=== PATIENT | male | born 1955 | race Caucasian/White ===

== ENCOUNTER 2019-01-05 23:54 | Inpatient (IN) | payer BC ==
[2019-01-05] MEDS ORDERED: Aspirin 325 mg EC Tablets PO STA (23:58)
[2019-01-05] MEDS ORDERED: Heparin25000 units/250ml 1/2NS 25,000 UNITS/250 ML BAG IV PRN (23:58)
[2019-01-05] MEDS ORDERED: Heparin25000 units/250ml 1/2NS 25,000 UNITS/250 ML BAG IV STA (23:58)
--- NOTE | 2019-01-06 00:07 | C.PDOC ---
History Of Present Illness 63 year old male with Hx of HTN presents with chest pain that began 15 minutes [employer]. Patient brought in via ALS, EKG done enroute shows acute interior wall FL. Vitals are stable. Time Seen by Provider: 01/05/19 23:58 Chief Complaint (Nursing): Chest Pain History Per: Patient History/Exam Limitations: no limitations Onset/Duration Of Symptoms: Mins Current Symptoms Are (Timing): Still Present Associated Symptoms: denies: Nausea, Dyspnea, Diaphoresis, Syncope Modifying Factors: None Exacerbating Factors: None Alleviating Factors: None Recent travel outside of the [place]: No Past Medical History Reviewed: Historical Data, Nursing Documentation, Vital Signs Family History: States: No Known Family Hx - Social History Hx Tobacco Use: Yes Hx Alcohol Use: Yes Hx Substance Use: No - Immunization History Hx Tetanus Toxoid Vaccination: No Hx Influenza Vaccination: No Hx Pneumococcal Vaccination: No Review Of Systems Constitutional: Negative for: Fever, Chills Cardiovascular: Positive for: Chest Pain. Negative for: Palpitations Respiratory: Negative for: Cough, Shortness of Breath Gastrointestinal: Negative for: Nausea, Vomiting Neurological: Negative for: Weakness, Numbness Physical Exam - Physical Exam Appears: Non-toxic Skin: Normal Color, Warm, Dry Head: Atraumatic, Normacephalic Eye(s): bilateral: Normal Inspection Oral Mucosa: Moist Neck: Normal, Supple Chest: Symmetrical, No Tenderness Cardiovascular: Rhythm Regular Respiratory: Normal Breath Sounds, No Rales, No Rhonchi, No Wheezing Gastrointestinal/Abdominal: Soft, No Tenderness Neurological/Psych: Oriented x3, Normal Speech ED Course And Treatment - Laboratory Results Result Diagrams: 01/06/19 08:50 01/06/19 08:50 Progress Note: EKG, blood work, and CXR ordered. Aspirin, heparin, brilinta and morphine administered. Dr. Alfrao called and notified, will come see patient for cardiac cath. Disposition Discussed With : Panda Alfaro Doctor Will See Patient In The: Hospital Counseled Patient/Family Regarding: Diagnosis - Disposition Disposition: HOSPITALIZED Disposition Time: 23:55 Condition: GUARDED - POA Present On Arrival: None Core Measure Indicators: Code Heart - Clinical Impression Clinical Impression: Acute ST elevation myocardial infarction (STEMI) - Scribe Statement The provider has reviewed the documentation as recorded by the Scribe Toan Fernandes All medical record entries made by the Scribe were at my direction and personally dictated by me. I have reviewed the chart and agree that the record accurately reflects my personal performance of the history, physical exam, medical decision making, and the department course for this patient. I have also personally directed, reviewed, and agree with the discharge instructions and d isposition.
--- NOTE | 2019-01-06 00:08 | C.PDOC ---
Time Seen by Provider: 01/05/19 23:58 Chief Complaint (Nursing): Chest Pain Past Medical History - Social History Hx Tobacco Use: Yes Hx Alcohol Use: Yes Hx Substance Use: No - Immunization History Hx Tetanus Toxoid Vaccination: No Hx Influenza Vaccination: No Hx Pneumococcal Vaccination: No Disposition Discussed With DrJusta: Panda Alfaro Doctor Will See Patient In The: Hospital Counseled Patient/Family Regarding: Diagnosis - Disposition Disposition: HOSPITALIZED Disposition Time: 00:08 Condition: GUARDED - POA Present On Arrival: None - Clinical Impression Clinical Impression: Acute ST elevation myocardial infarction (STEMI)
[2019-01-06 00:19] LABS: BASO # 0.1 K/uL (0.0-0.2); BASO % 0.5 % (0.0-2.0); EOS # 0.1 K/uL (0.0-0.7); HEMOGLOBIN 15.5 g/dL (12.0-18.0); LYMPH # 4.5 K/uL (1.0-4.3); LYMPH % 39.7 % (20.0-40.0); MEAN CELL VOLUME 92.6 fL (80.0-94.0); MEAN CORPUSCULAR HGB CONC 33.5 g/dL (33.0-37.0); MEAN PLATELET VOLUME 8.4 fL (7.2-11.7); MONO # 1.1 K/uL (0.0-0.8); MONO % 9.6 % (0.0-10.0); NEUT # 5.6 K/uL (1.8-7.0); NEUT % 49.2 % (50.0-75.0); NRBC % 0.1 % (0.0-2.0); RBC 4.99 Mil/uL (4.40-5.90); RED CELL DISTRIBUTION WIDTH 13.5 % (11.5-14.5); WHITE BLOOD COUNT 11.4 K/uL (4.8-10.8)
[2019-01-06 00:27] LABS: INR 1.1; PROTHROMBIN TIME 11.9 SECONDS (9.7-12.2)
[2019-01-06] MEDS ORDERED: Lidocaine 2% MPF (5 ml) Inj ONE (00:33)
[2019-01-06 00:37] LABS: ALB/GLOB RATIO 1.4 (1.0-2.1); ALBUMIN 4.8 g/dL (3.5-5.0); ALT/SGPT 8 U/L (21-72); AST/SGOT 32 U/L (17-59); BLOOD UREA NITROGEN 16 mg/dL (9-20); CALCIUM 10.4 mg/dl (8.6-10.4); GFR NON-AFRICAN AMERICAN > 60
[2019-01-06] MEDS ORDERED: Eptifibatide 20 mg/10mL Inj IVP ONE ×2 (01:09→01:23)
[2019-01-06] MEDS ORDERED: Eptifibatide 0.75 mg/ml 75 MG/100 ML BAG IV ONE (01:14)
[2019-01-06] MEDS: Eptifibatide 0.75 mg/ml 75 MG/100 ML BAG IV SCH ×2 (01:15→09:22)
[2019-01-06] MEDS ORDERED: Midazolam 2 MG/2 ML VIAL ONE (01:24)
--- NOTE | 2019-01-06 01:37 | CP.PCM.CON ---
History of Present Illness - History of Present Illness History of Present Illness: 63 yo male with hx HTN /HLD developed chest apin while sleeping and BIBEMS. Pt was code heart for STEMI inf. wall and taken to cath lab radiological technologist where 100% RCA given NAEEM Pt denies chest pain when seen in cath lab radiological technologist post procedure No sob /n /v /d /fever/cough. ROS- as ntoed All- PCN Social-+tob/ +etoh/ deniend drugs Meds- reviewed FH- Unknown PE T- 97.8 P-82 R-16 BP-150/ 99 Alert responisnve nad Neck- no jvdlungs- bilat bs Heart-rr aBd- benign eXt- no edema, distal pulses intact Labs, EKG-reviewed A&P STEMI s/p Cardiac Cath /PCI /NAEEM to RCA HTN HLD Hypokalemia ADmit to ICU cont ASA/brilinta/ Integrilin as per Cardiology Statin /BB OPtimize lytes ECHO Staged PCI DVT prophylaxis Past Patient History - Past Social History Smoking Status: Light Smoker < 10 Cigarettes Daily - PSYCHIATRIC Hx Substance Use: No Meds Allergies/Adverse Reactions: Allergies Allergy/AdvReac Type Severity Reaction Status Date / Time Penicillins Allergy Verified 01/05/19 23:57 - Medications Medications: Current Medications Heparin Sodium/Sodium Chloride (Heparin 79531 Units/250ml 1/2 Normal Saline) 25,000 units in 250 mls @ 8.165 mls/hr IV .Q24H PRN; Protocol PRN Reason: ADJUST RATE PER PROTOCOL Last Admin: 01/06/19 00:19 Dose: 8.165 mls/hr Heparin Sodium/Sodium Chloride (Heparin 06892 Units/250ml 1/2 Normal Saline) 25,000 units in 250 mls @ 10.206 mls/hr IV .Q0M [facility]; Protocol Stop: 01/07/19 00:27 Last Admin: 01/06/19 00:30 Dose: Not Given Results - Vital Signs Recent Vital Signs: Last Vital Signs Temp 97.8 F 01/05/19 23:55 Pulse 82 01/06/19 00:30 Resp 16 01/06/19 00:30 BP 150/99 H 01/06/19 00:30 Pulse Ox 98 01/06/19 00:30 - Labs Result Diagrams: 01/06/19 00:12 01/06/19 00:12 Labs: Laboratory Results - last 24 hr 01/05/19 01/06/19 01/06/19 00:18 00:12 00:12 WBC 11.4 H RBC 4.99 Hgb 15.5 Hct 46.2 MCV 92.6 D MCH 31.0 MCHC 33.5 RDW 13.5 Plt Count 322 D MPV 8.4 Neut % (Auto) 49.2 L Lymph % (Auto) 39.7 [place] % (Auto) 9.6 Eos % (Auto) 1.0 Baso % (Auto) 0.5 Neut # (Auto) 5.6 Lymph # (Auto) 4.5 H [place] # (Auto) 1.1 H Eos # (Auto) 0.1 Baso # (Auto) 0.1 PT 11.9 INR 1.1 APTT 29 Sodium Potassium Chloride Carbon Dioxide Anion Gap BUN Creatinine Est GFR ( Amer) Est GFR (Non-Af Amer) Random Glucose Calcium Total Bilirubin AST ALT Alkaline Phosphatase Troponin I Total Protein Albumin Globulin Albumin/Globulin Ratio Blood Type B POSITIVE Antibody Screen Negative 01/06/19 00:12 WBC RBC Hgb Hct MCV MCH MCHC RDW Plt Count MPV Neut % (Auto) Lymph % (Auto) Burnet % (Auto) Eos % (Auto) Baso % (Auto) Neut # (Auto) Lymph # (Auto) Burnet # (Auto) Eos # (Auto) Baso # (Auto) PT INR APTT Sodium 139 Potassium 2.7 L Chloride 97 L Carbon Dioxide 32 H Anion Gap 12 BUN 16 Creatinine 0.7 L Est GFR ( Amer) > 60 Est GFR (Non-Af Amer) > 60 Random Glucose 129 H Calcium 10.4 Total Bilirubin 0.5 AST 32 ALT 8 L D Alkaline Phosphatase 98 Troponin I < 0.0120 Total Protein 8.1 Albumin 4.8 Globulin 3.4 Albumin/Globulin Ratio 1.4 Blood Type Antibody Screen Assessment & Plan (1) Acute ST elevation myocardial infarction (STEMI) Status: Acute (2) HTN (hypertension) Status: Chronic (3) HLD (hyperlipidemia) Status: Chronic (4) Hypokalemia Status: Acute
[2019-01-06] MEDS ORDERED: Magnesium Sulfate 1 gm in D5W 1 GM/100 ML BAG IVPB SCH (01:45)
[2019-01-06 02:12] VITALS: BMI 26.4
[2019-01-06] MEDS ORDERED: Magnesium Sulfate 1 gm in D5W 1 GM/100 ML BAG IVPB ONE (02:30)
[2019-01-06] MEDS: Sodium Chloride 0.45% 1,000 ML IV SCH ×2 (02:33→12:29)
--- NOTE | 2019-01-06 03:19 | CP.PCM.HP ---
<Rema Arana - Last Filed: 01/06/19 03:56> History of Present Illness - History of Present Illness History of Present Illness: Patient is a 63 year old male w/ pmhx of HTN who presented to ED as a "code heart". Pt reports he began having intense restrosternal chest pressure approximately 20 minutes prior to calling EMS. Pt attempted to alleviate the pain by taking his unknown antihypertensive medication(which he is not compliant w/) and by taking an antacid, w/ no relief of symptoms. Pt and family then called EMS to bring him to the hospital for further evaluation. EKG by EMS revealed a STEMI, a pt was given ASA, NG, brilinta, IVF prior to arrival. Pt subsequently underwent cardiac cath with PCI, NAEEM to RCA. Present on Admission - Present on Admission Any Indicators Present on Admission: No Review of Systems - Constitutional Constitutional: Headache - EENT Eyes: absent: Blurred Vision - Cardiovascular Cardiovascular: Chest Pain. absent: Dyspnea - Respiratory Respiratory: absent: Cough - Gastrointestinal Gastrointestinal: absent: Diarrhea, Nausea, Vomiting - Neurological Neurological: absent: Confusion, Syncope Past Patient History - Past Medical History & Family History Past Medical History?: Yes - Past Social History Smoking Status: Light Smoker < 10 Cigarettes Daily - CARDIAC Hx Hypertension: Yes - RENAL Hx Kidney Stones: Yes - MUSCULOSKELETAL/RHEUMATOLOGICAL Hx Falls: No - PSYCHIATRIC Hx Substance Use: No - ANESTHESIA Hx Anesthesia: No Hx Anesthesia Reactions: No Hx Malignant Hyperthermia: No Has any member of the family had a problem w/ anesthesia?: No Meds Allergies/Adverse Reactions: Allergies Allergy/AdvReac Type Severity Reaction Status Date / Time Penicillins Allergy Verified 01/05/19 23:57 Physical Exam - Constitutional Appears: Non-toxic, In Acute Distress - Head Exam Head Exam: ATRAUMATIC, NORMAL INSPECTION, NORMOCEPHALIC - Eye Exam Eye Exam: EOMI, Normal appearance - ENT Exam ENT Exam: Mucous Membranes Moist, Normal Exam - Neck Exam Neck exam: Positive for: Normal Inspection - Respiratory Exam Respiratory Exam: Clear to Auscultation Bilateral, NORMAL BREATHING PATTERN. absent: Respiratory Distress - Cardiovascular Exam Cardiovascular Exam: REGULAR RHYTHM, +S1, +S2. absent: Tachycardia - GI/Abdominal Exam GI & Abdominal Exam: Normal Bowel Sounds, Soft. absent: Distended - Extremities Exam Extremities exam: Positive for: normal inspection. Negative for: calf tenderness, pedal edema - Neurological Exam Neurological exam: Alert, Oriented x3 - Skin Skin Exam: Dry, Intact, Normal Color, Warm Results - Vital Signs Recent Vital Signs: Last Vital Signs Temp 97.8 F 01/05/19 23:55 Pulse 82 01/06/19 00:30 Resp 16 01/06/19 00:30 BP 150/99 H 01/06/19 00:30 Pulse Ox 98 01/06/19 00:30 - Labs Result Diagrams: 01/06/19 00:12 01/06/19 00:12 Labs: Laboratory Results - last 24 hr 01/05/19 01/06/19 01/06/19 00:18 00:12 00:12 WBC 11.4 H RBC 4.99 Hgb 15.5 Hct 46.2 MCV 92.6 D MCH 31.0 MCHC 33.5 RDW 13.5 Plt Count 322 D MPV 8.4 Neut % (Auto) 49.2 L Lymph % (Auto) 39.7 [place]yer % (Auto) 9.6 Eos % (Auto) 1.0 Baso % (Auto) 0.5 Neut # (Auto) 5.6 Lymph # (Auto) 4.5 H Dyer # (Auto) 1.1 H Eos # (Auto) 0.1 Baso # (Auto) 0.1 PT 11.9 INR 1.1 APTT 29 Sodium Potassium Chloride Carbon Dioxide Anion Gap BUN Creatinine Est GFR ( Amer) Est GFR (Non-Af Amer) Random Glucose Calcium Total Bilirubin AST ALT Alkaline Phosphatase Troponin I Total Protein Albumin Globulin Albumin/Globulin Ratio Blood Type B POSITIVE Antibody Screen Negative 01/06/19 00:12 WBC RBC Hgb Hct MCV MCH MCHC RDW Plt Count MPV Neut % (Auto) Lymph % (Auto) [place]yer % (Auto) Eos % (Auto) Baso % (Auto) Neut # (Auto) Lymph # (Auto) [place]yer # (Auto) Eos # (Auto) Baso # (Auto) PT INR APTT Sodium 139 Potassium 2.7 L Chloride 97 L Carbon Dioxide 32 H Anion Gap 12 BUN 16 Creatinine 0.7 L Est GFR ( Amer) > 60 Est GFR (Non-Af Amer) > 60 Random Glucose 129 H Calcium 10.4 Total Bilirubin 0.5 AST 32 ALT 8 L D Alkaline Phosphatase 98 Troponin I < 0.0120 Total Protein 8.1 Albumin 4.8 Globulin 3.4 Albumin/Globulin Ratio 1.4 Blood Type Antibody Screen Assessment & Plan - Assessment and Plan (Free Text) Assessment: 63 year old male w/ pmhx of uncontrolled HTN, admitted as code heart; s/p cardiac cath with PCI, NAEEM of RCA Plan: STEMI EKG: STEMI, inferior wall infarct s/p NAEEM of RCA ASA 81mg qd Integrilin Brilinta 90 po BID crestor 10mg hs metoprolol 25mg po q12 f/u lipid panel f/u Hgb a1c f/u echo Hypokalemia K 2.7 on admission replete as needed Ppx heparin 5000 q8, SCDs pepcid 20mg po BID HHD Discussed w/ Dr. Mtz -Rema Arana, PGY-1 <Kehinde Mtz - Last Filed: 01/06/19 06:48> Results - Vital Signs Recent Vital Signs: Last Vital Signs Temp 97.7 F 01/06/19 04:00 Pulse 72 01/06/19 04:50 Resp 18 01/06/19 04:50 BP 132/82 01/06/19 04:48 Pulse Ox 100 01/06/19 04:50 - Labs Result Diagrams: 01/06/19 00:12 01/06/19 00:12 Labs: Laboratory Results - last 24 hr 01/05/19 01/06/19 01/06/19 00:18 00:12 00:12 WBC 11.4 H RBC 4.99 Hgb 15.5 Hct 46.2 MCV 92.6 D MCH 31.0 MCHC 33.5 RDW 13.5 Plt Count 322 D MPV 8.4 Neut % (Auto) 49.2 L Lymph % (Auto) 39.7 [place]yer % (Auto) 9.6 Eos % (Auto) 1.0 Baso % (Auto) 0.5 Neut # (Auto) 5.6 Lymph # (Auto) 4.5 H Dyer # (Auto) 1.1 H Eos # (Auto) 0.1 Baso # (Auto) 0.1 PT 11.9 INR 1.1 APTT 29 Sodium Potassium Chloride Carbon Dioxide Anion Gap BUN Creatinine Est GFR ( Amer) Est GFR (Non-Af Amer) Random Glucose Calcium Total Bilirubin AST ALT Alkaline Phosphatase Troponin I Total Protein Albumin Globulin Albumin/Globulin Ratio Blood Type B POSITIVE Antibody Screen Negative 01/06/19 00:12 WBC RBC Hgb Hct MCV MCH MCHC RDW Plt Count MPV Neut % (Auto) Lymph % (Auto) Dyer % (Auto) Eos % (Auto) Baso % (Auto) Neut # (Auto) Lymph # (Auto) Dyer # (Auto) Eos # (Auto) Baso # (Auto) PT INR APTT Sodium 139 Potassium 2.7 L Chloride 97 L Carbon Dioxide 32 H Anion Gap 12 BUN 16 Creatinine 0.7 L Est GFR ( Amer) > 60 Est GFR (Non-Af Amer) > 60 Random Glucose 129 H Calcium 10.4 Total Bilirubin 0.5 AST 32 ALT 8 L D Alkaline Phosphatase 98 Troponin I < 0.0120 Total Protein 8.1 Albumin 4.8 Globulin 3.4 Albumin/Globulin Ratio 1.4 Blood Type Antibody Screen Assessment & Plan - Date & Time Date: 01/06/19 (I have seen and examined the patient. I agree with the findings and plan of care as documented by Dr. Arana. Patient with STEMI. History of hypertension and hyperlipidemia. S/p cath by Dr Alfaro. Admit to ICU. Further management as per ICU. Monitor for acute changes.) Time: 06:47 Attending/Attestation - Attestation I have personally seen and examined this patient.: Yes I have fully participated in the care of the patient.: Yes I have reviewed all pertinent clinical information: Yes
--- NOTE | 2019-01-06 07:31 | RAD ---
Chest x-ray single frontal view Chest pain. Comparison: None available. Findings: Mild venous congestion. Bilateral hilar prominence. Patchy increased markings in the right infrahilar region and left lung base. Cardiomegaly. Prominent ectatic aorta. Upper lobe granulomatous changes. Degenerative changes in the spine and shoulders. Increased radiopaque density and or contrast seen in the bilateral renal parenchyma. Impression: Mild venous congestion. Bilateral hilar prominence. Patchy increased markings in the right infrahilar region and left lung base. Cardiomegaly. Prominent ectatic aorta. Upper lobe granulomatous changes. Degenerative changes in the spine and shoulders. Increased radiopaque density and or contrast seen in the bilateral renal parenchyma.
[2019-01-06 09:03] LABS: BASO % 0.3 % (0.0-2.0); EOS % 0.3 % (0.0-4.0); HEMOGLOBIN 14.6 g/dL (12.0-18.0); LYMPH # 1.5 K/uL (1.0-4.3); LYMPH % 15.9 % (20.0-40.0); MEAN CELL VOLUME 91.7 fL (80.0-94.0); MEAN CORPUSCULAR HEMOGLOBIN 31.4 pg (27.0-31.0); MEAN CORPUSCULAR HGB CONC 34.2 g/dL (33.0-37.0); MEAN PLATELET VOLUME 8.4 fL (7.2-11.7); MONO # 0.9 K/uL (0.0-0.8); MONO % 9.7 % (0.0-10.0); NEUT # 6.8 K/uL (1.8-7.0); NEUT % 73.8 % (50.0-75.0); RBC 4.65 Mil/uL (4.40-5.90); RED CELL DISTRIBUTION WIDTH 13.7 % (11.5-14.5); WHITE BLOOD COUNT 9.2 K/uL (4.8-10.8)
[2019-01-06 09:29] LABS: LDL CHOLESTEROL 126 mg/dL (0-129)
[2019-01-06 10:00] LABS: ALB/GLOB RATIO 1.5 (1.0-2.1); ALBUMIN 3.9 g/dL (3.5-5.0); ALT/SGPT 57 U/L (21-72); AST/SGOT 379 U/L (17-59); BLOOD UREA NITROGEN 13 mg/dL (9-20); CALCIUM 8.7 mg/dl (8.6-10.4); GFR NON-AFRICAN AMERICAN > 60; HDL CHOLESTEROL 43 mg/dL (30-70)
[2019-01-06] MEDS ORDERED: Acetylcysteine 20% Inhal Soln (4ml) PO SCH (12:30)
--- NOTE | 2019-01-06 13:47 | CP.PCM.PN ---
Subjective - Date & Time of Evaluation Date of Evaluation: 01/06/19 Time of Evaluation: 13:44 - Subjective Subjective: Patient seen and examined at bedside. Patient post cardiac cath. SOHAM II, III, AVF, patient sitting in bed in NAD Objective - Vital Signs/Intake and Output Vital Signs (last 24 hours): Temp Pulse Resp BP Pulse Ox 98.3 F 70 20 160/105 H 98 01/06/19 12:00 01/06/19 13:10 01/06/19 12:30 01/06/19 12:56 01/06/19 13:10 Intake and Output: 01/06/19 01/06/19 06:59 18:59 Intake Total 917.2 778.4 Output Total 500 Balance 417.2 778.4 - Medications Medications: Current Medications Acetylcysteine (Acetylcysteine 20%) 6 ml PO Q12H [facility] Stop: 01/08/19 01:46 Amlodipine Besylate (Norvasc) 5 mg PO DAILY [facility] Last Admin: 01/06/19 12:46 Dose: 5 mg Aspirin (Aspirin Chewable) 81 mg PO DAILY [facility] Last Admin: 01/06/19 10:11 Dose: 81 mg Famotidine (Pepcid) 20 mg IVP Q12 [facility] Last Admin: 01/06/19 10:11 Dose: 20 mg Heparin Sodium (Porcine) (Heparin) 5,000 units SC Q8 [facility] Heparin Sodium/Sodium Chloride (Heparin 87587 Units/250ml 1/2 Normal Saline) 25,000 units in 250 mls @ 8.165 mls/hr IV .Q24H PRN; Protocol PRN Reason: ADJUST RATE PER PROTOCOL Last Admin: 01/06/19 00:19 Dose: 8.165 mls/hr Heparin Sodium/Sodium Chloride (Heparin 21317 Units/250ml 1/2 Normal Saline) 25,000 units in 250 mls @ 10.206 mls/hr IV .Q0M [facility]; Protocol Stop: 01/07/19 00:27 Last Admin: 01/06/19 00:30 Dose: Not Given Sodium Chloride (Sodium Chloride 0.45%) 1,000 mls @ 100 mls/hr IV .Q10H [facility] Last Admin: 01/06/19 12:29 Dose: 100 mls/hr Metoprolol Tartrate (Lopressor) 25 mg PO Q12 [facility] Last Admin: 01/06/19 10:11 Dose: 25 mg Rosuvastatin Calcium (Crestor) 10 mg PO HS [facility] Ticagrelor (Brilinta) 90 mg PO BID [facility] Last Admin: 01/06/19 10:11 Dose: 90 mg - Labs Labs: 01/06/19 08:50 01/06/19 08:50 PT 11.9 SECONDS (9.7-12.2) 01/06/19 00:12 INR 1.1 01/06/19 00:12 APTT 29 SECONDS (21-34) 01/06/19 00:12 - Constitutional Appears: Well, Non-toxic, No Acute Distress - Head Exam Head Exam: NORMAL INSPECTION, NORMOCEPHALIC - Eye Exam Pupil Exam: PERRL - ENT Exam ENT Exam: Mucous Membranes Moist - Respiratory Exam Respiratory Exam: NORMAL BREATHING PATTERN. absent: Rhonchi, Wheezes, Respiratory Distress, Stridor - Cardiovascular Exam Cardiovascular Exam: REGULAR RHYTHM, +S1, +S2 - GI/Abdominal Exam GI & Abdominal Exam: Normal Bowel Sounds - Extremities Exam Extremities Exam: Full ROM, Normal Capillary Refill, Normal Inspection - Neurological Exam Neurological Exam: Alert, Awake, CN II-XII Intact, Oriented x3 - Skin Skin Exam: Normal Color Assessment and Plan - Assessment and Plan (Free Text) Assessment: ASHD: patient admits to drinknig and smoking (unfiltered tobacco), continue DAPT, statin and Start BP meds -Patient remains hemodynamically stable -start oral mucomyst -continue dvt/pud ppx -start oral diet if no procedure anticipated
[2019-01-06] MEDS ORDERED: Sodium Chloride 0.45% 1,000 ML IV SCH (13:49)
[2019-01-06] MEDS: Acetylcysteine 20% Inhal Soln (4ml) PO SCH (14:05)
--- NOTE | 2019-01-06 14:19 | CP.PCM.CON ---
History of Present Illness - History of Present Illness History of Present Illness: Patient is a 63 year old male w/ pmhx of HTN who presented to ED as a "code heart". Pt reports he began having intense restrosternal chest pressure approximately 20 minutes prior to calling EMS. Pt attempted to alleviate the pain by taking his unknown antihypertensive medication(which he is not compliant w/) and by taking an antacid, w/ no relief of symptoms. Pt and family then called EMS to bring him to the hospital for further evaluation. EKG by EMS revealed a STEMI, a pt was given ASA, NG, brilinta, IVF prior to arrival. Pt subsequently underwent cardiac cath with PCI, NAEEM to RCA. At the time of exam his pain has completely resolved. No SOB. Past Patient History - Past Medical History & Family History Past Medical History?: Yes - Past Social History Smoking Status: Light Smoker < 10 Cigarettes Daily - CARDIAC Hx Hypertension: Yes - RENAL Hx Kidney Stones: Yes - MUSCULOSKELETAL/RHEUMATOLOGICAL Hx Falls: No - PSYCHIATRIC Hx Substance Use: No - ANESTHESIA Hx Anesthesia: No Hx Anesthesia Reactions: No Hx Malignant Hyperthermia: No Has any member of the family had a problem w/ anesthesia?: No Meds Allergies/Adverse Reactions: Allergies Allergy/AdvReac Type Severity Reaction Status Date / Time Penicillins Allergy Verified 01/05/19 23:57 - Medications Medications: Current Medications Acetylcysteine (Acetylcysteine 20%) 6 ml PO Q12H [facility] Stop: 01/08/19 01:46 Last Admin: 01/06/19 14:05 Dose: 6 ml Amlodipine Besylate (Norvasc) 5 mg PO DAILY [facility] Last Admin: 01/06/19 12:46 Dose: 5 mg Aspirin (Aspirin Chewable) 81 mg PO DAILY [facility] Last Admin: 01/06/19 10:11 Dose: 81 mg Famotidine (Pepcid) 20 mg IVP Q12 [facility] Last Admin: 01/06/19 10:11 Dose: 20 mg Heparin Sodium (Porcine) (Heparin) 5,000 units SC Q8 [facility] Last Admin: 01/06/19 14:04 Dose: 5,000 units Heparin Sodium/Sodium Chloride (Heparin 33028 Units/250ml 1/2 Normal Saline) 25 ,000 units in 250 mls @ 8.165 mls/hr IV .Q24H PRN; Protocol PRN Reason: ADJUST RATE PER PROTOCOL Last Admin: 01/06/19 00:19 Dose: 8.165 mls/hr Heparin Sodium/Sodium Chloride (Heparin 07005 Units/250ml 1/2 Normal Saline) 25,000 units in 250 mls @ 10.206 mls/hr IV .Q0M [facility]; Protocol Stop: 01/07/19 00:27 Last Admin: 01/06/19 00:30 Dose: Not Given Sodium Chloride (Sodium Chloride 0.45%) 1,000 mls @ 50 mls/hr IV .Q20H [facility] Lisinopril (Zestril) 2.5 mg PO DAILY [facility] Metoprolol Tartrate (Lopressor) 25 mg PO Q12 [facility] Last Admin: 01/06/19 10:11 Dose: 25 mg Rosuvastatin Calcium (Crestor) 10 mg PO HS [facility] Ticagrelor (Brilinta) 90 mg PO BID [facility] Last Admin: 01/06/19 10:11 Dose: 90 mg Physical Exam - Head Exam Head Exam: NORMOCEPHALIC - Neck Exam Neck exam: Positive for: Normal Inspection - Respiratory Exam Respiratory Exam: NORMAL BREATHING PATTERN - Cardiovascular Exam Cardiovascular Exam: REGULAR RHYTHM - Extremities Exam Extremities exam: Positive for: normal inspection - Neurological Exam Neurological exam: Alert, Oriented x3 Results - Vital Signs Recent Vital Signs: Last Vital Signs Temp 98.3 F 01/06/19 12:00 Pulse 69 01/06/19 14:00 Resp 10 L 01/06/19 14:00 BP 160/105 H 01/06/19 12:56 Pulse Ox 100 01/06/19 14:00 - Labs Result Diagrams: 01/06/19 08:50 01/06/19 08:50 Labs: Laboratory Results - last 24 hr 01/05/19 01/06/19 01/06/19 00:18 00:12 00:12 WBC 11.4 H RBC 4.99 Hgb 15.5 Hct 46.2 MCV 92.6 D MCH 31.0 MCHC 33.5 RDW 13.5 Plt Count 322 D MPV 8.4 Neut % (Auto) 49.2 L Lymph % (Auto) 39.7 Harvey % (Auto) 9.6 Eos % (Auto) 1.0 Baso % (Auto) 0.5 Neut # (Auto) 5.6 Lymph # (Auto) 4.5 H Harvey # (Auto) 1.1 H Eos # (Auto) 0.1 Baso # (Auto) 0.1 PT 11.9 INR 1.1 APTT 29 Sodium Potassium Chloride Carbon Dioxide Anion Gap BUN Creatinine Est GFR ( Amer) Est GFR (Non-Af Amer) Random Glucose Hemoglobin A1c Calcium Phosphorus Magnesium Total Bilirubin AST ALT Alkaline Phosphatase Troponin I Total Protein Albumin Globulin Albumin/Globulin Ratio Triglycerides Cholesterol LDL Cholesterol Direct HDL Cholesterol Blood Type B POSITIVE Antibody Screen Negative 01/06/19 01/06/19 01/06/19 00:12 08:50 08:50 WBC 9.2 RBC 4.65 Hgb 14.6 Hct 42.7 MCV 91.7 MCH 31.4 H MCHC 34.2 RDW 13.7 Plt Count 269 MPV 8.4 Neut % (Auto) 73.8 Lymph % (Auto) 15.9 L Harvey % (Auto) 9.7 Eos % (Auto) 0.3 Baso % (Auto) 0.3 Neut # (Auto) 6.8 Lymph # (Auto) 1.5 Harvey # (Auto) 0.9 H Eos # (Auto) 0.0 Baso # (Auto) 0.0 PT INR APTT Sodium 139 Potassium 2.7 L Chloride 97 L Carbon Dioxide 32 H Anion Gap 12 BUN 16 Creatinine 0.7 L Est GFR ( Amer) > 60 Est GFR (Non-Af Amer) > 60 Random Glucose 129 H Hemoglobin A1c 6.2 Calcium 10.4 Phosphorus Magnesium Total Bilirubin 0.5 AST 32 ALT 8 L D Alkaline Phosphatase 98 Troponin I < 0.0120 Total Protein 8.1 Albumin 4.8 Globulin 3.4 Albumin/Globulin Ratio 1.4 Triglycerides Cholesterol LDL Cholesterol Direct HDL Cholesterol Blood Type Antibody Screen 01/06/19 08:50 WBC RBC Hgb Hct MCV MCH MCHC RDW Plt Count MPV Neut % (Auto) Lymph % (Auto) Harvey % (Auto) Eos % (Auto) Baso % (Auto) Neut # (Auto) Lymph # (Auto) Harvey # (Auto) Eos # (Auto) Baso # (Auto) PT INR APTT Sodium 132 Potassium 4.7 Chloride 99 Carbon Dioxide 25 Anion Gap 12 BUN 13 Creatinine 0.5 L Est GFR ( Amer) > 60 Est GFR (Non-Af Amer) > 60 Random Glucose 120 H Hemoglobin A1c Calcium 8.7 Phosphorus 2.9 Magnesium 2.1 Total Bilirubin 0.7 AST 379 H D ALT 57 Alkaline Phosphatase 74 Troponin I 134.0000 H* Total Protein 6.6 Albumin 3.9 Globulin 2.7 Albumin/Globulin Ratio 1.5 Triglycerides 88 Cholesterol 184 LDL Cholesterol Direct 126 HDL Cholesterol 43 Blood Type Antibody Screen Assessment & Plan (1) CAD (coronary artery disease) Assessment and Plan: Multi-vessel disease. Plans for management discussed with patient and family. Status: Acute (2) Acute ST elevation myocardial infarction (STEMI) Assessment and Plan: S/P PTCA and stent of RCA. Off Integrillin now. Echo cardiogram to assess LV function. Continue DAPT and trend troponin. Status: Acute (3) HTN (hypertension) Assessment and Plan: BP not well controlled, Change Amlodipine to Zestril and increase as needed. keep SBP around 130. check Hb A1C. Status: Chronic
--- NOTE | 2019-01-06 14:40 | CP.PCM.PN ---
Subjective - Date & Time of Evaluation Date of Evaluation: 01/06/19 Time of Evaluation: 14:30 - Subjective Subjective: medical attending note; patient seen, examined. Patient's daughter and son in present. Patient denies chest pain, denies shortness of breathe, denies headache, denies abdominal pain, denies constipation, denies nausea, denies vomitting. Objective - Vital Signs/Intake and Output Vital Signs (last 24 hours): Temp Pulse Resp BP Pulse Ox 98.3 F 69 10 L 160/105 H 100 01/06/19 12:00 01/06/19 14:00 01/06/19 14:00 01/06/19 12:56 01/06/19 14:00 Intake and Output: 01/06/19 01/06/19 06:59 18:59 Intake Total 917.2 778.4 Output Total 500 Balance 417.2 778.4 - Medications Medications: Current Medications Acetylcysteine (Acetylcysteine 20%) 6 ml PO Q12H [facility] Stop: 01/08/19 01:46 Last Admin: 01/06/19 14:05 Dose: 6 ml Aspirin (Aspirin Chewable) 81 mg PO DAILY [facility] Last Admin: 01/06/19 10:11 Dose: 81 mg Famotidine (Pepcid) 20 mg IVP Q12 [facility] Last Admin: 01/06/19 10:11 Dose: 20 mg Heparin Sodium (Porcine) (Heparin) 5,000 units SC Q8 [facility] Last Admin: 01/06/19 14:04 Dose: 5,000 units Heparin Sodium/Sodium Chloride (Heparin 21289 Units/250ml 1/2 Normal Saline) 25,000 units in 250 mls @ 8.165 mls/hr IV .Q24H PRN; Protocol PRN Reason: ADJUST RATE PER PROTOCOL Last Admin: 01/06/19 00:19 Dose: 8.165 mls/hr Heparin Sodium/Sodium Chloride (Heparin 56487 Units/250ml 1/2 Normal Saline) 25,000 units in 250 mls @ 10.206 mls/hr IV .Q0M [facility]; Protocol Stop: 01/07/19 00:27 Last Admin: 01/06/19 00:30 Dose: Not Given Sodium Chloride (Sodium Chloride 0.45%) 1,000 mls @ 50 mls/hr IV .Q20H [facility] Lisinopril (Zestril) 2.5 mg PO DAILY [facility] Metoprolol Tartrate (Lopressor) 25 mg PO Q12 [facility] Last Admin: 01/06/19 10:11 Dose: 25 mg Rosuvastatin Calcium (Crestor) 10 mg PO HS [facility] Ticagrelor (Brilinta) 90 mg PO BID [facility] Last Admin: 01/06/19 10:11 Dose: 90 mg - Labs Labs: 01/06/19 08:50 01/06/19 08:50 PT 11.9 SECONDS (9.7-12.2) 01/06/19 00:12 INR 1.1 01/06/19 00:12 APTT 29 SECONDS (21-34) 01/06/19 00:12 - Constitutional Appears: Non-toxic, No Acute Distress - Head Exam Head Exam: NORMAL INSPECTION - Eye Exam Eye Exam: EOMI - ENT Exam ENT Exam: Mucous Membranes Dry - Respiratory Exam Respiratory Exam: Clear to Ausculation Bilateral, NORMAL BREATHING PATTERN. absent: Rales, Rhonchi, Wheezes - Cardiovascular Exam Cardiovascular Exam: REGULAR RHYTHM, +S1, +S2 - GI/Abdominal Exam GI & Abdominal Exam: Soft, Normal Bowel Sounds. absent: Distended, Firm, Guarding, Rigid, Tenderness, Rebound - Extremities Exam Extremities Exam: absent: Pedal Edema, Tenderness - Neurological Exam Neurological Exam: Alert, Awake, Oriented x3 - Psychiatric Exam Psychiatric exam: Normal Affect, Normal Mood - Skin Skin Exam: Dry, Intact, Normal Color, Warm Assessment and Plan (1) Acute ST elevation myocardial infarction (STEMI) Assessment & Plan: code heart Pt subsequently underwent cardiac cath with PCI, NAEEM to RCA. Patient will need future intervention for LAD. aspirin, beta brayden, statin, tiana inhibitor, Status: Acute (2) Smoker Assessment & Plan: advised to stop smoking--->repeatedly nictone patch daily Status: Acute (3) Impaired glucose tolerance Assessment & Plan: a1c: 6.0 Status: Acute (4) CAD (coronary artery disease) Assessment & Plan: Cardiology (Dr. Alfaro) on case-->help appreciated Echocardiogram code heart aspirin, brilinta, statin, tiana inhibitor, beta brayden smoking cessation stress relief methods such as yoga to promote mindfulness Status: Acute (5) HLD (hyperlipidemia) Assessment & Plan: crestor 20mg poqHS lipid panel in AM Status: Chronic (6) HTN (hypertension) Assessment & Plan: Lisinopril 2.5mg PO Daily lopressor 25mg PO bid advised smoking prevention--->30 pack year smoking; had quit and then resumed chain smoker advised to stop smoking, given risk factor for CAD, in addition to cancer, premature aging Status: Chronic (7) Kidney stone Assessment & Plan: flomax 0.4mg PO daily po hydration heart healthy diet Status: Chronic (8) Prophylactic measure Assessment & Plan: patient is off integrlin Gentle iv fluid heparin 5000 unit sub8H Status: Acute
[2019-01-06] MEDS ORDERED: Metoprolol 1 mg/ml Inj IVP ONE (20:30)
[2019-01-07] MEDS: Acetylcysteine 20% Inhal Soln (4ml) PO SCH ×2 (01:00→14:20)
[2019-01-07 06:20] LABS: BASO % 0.2 % (0.0-2.0); EOS % 0.2 % (0.0-4.0); HEMOGLOBIN 13.5 g/dL (12.0-18.0); LYMPH % 11.2 % (20.0-40.0); MEAN CELL VOLUME 92.8 fL (80.0-94.0); MEAN CORPUSCULAR HEMOGLOBIN 30.5 pg (27.0-31.0); MEAN CORPUSCULAR HGB CONC 32.8 g/dL (33.0-37.0); MEAN PLATELET VOLUME 8.6 fL (7.2-11.7); MONO # 0.8 K/uL (0.0-0.8); MONO % 8.9 % (0.0-10.0); NEUT # 7.5 K/uL (1.8-7.0); NEUT % 79.5 % (50.0-75.0); RBC 4.42 Mil/uL (4.40-5.90); RED CELL DISTRIBUTION WIDTH 13.7 % (11.5-14.5); WHITE BLOOD COUNT 9.4 K/uL (4.8-10.8)
[2019-01-07 06:47] LABS: LDL CHOLESTEROL 104 mg/dL (0-129)
[2019-01-07 06:49] LABS: ALB/GLOB RATIO 1.4 (1.0-2.1); ALBUMIN 3.8 g/dL (3.5-5.0); ALT/SGPT 38 U/L (21-72); AST/SGOT 199 U/L (17-59); BLOOD UREA NITROGEN 12 mg/dL (9-20); CALCIUM 9.2 mg/dl (8.6-10.4); GFR NON-AFRICAN AMERICAN > 60; HDL CHOLESTEROL 40 mg/dL (30-70)
--- NOTE | 2019-01-07 07:47 | CP.CCUPN ---
CCU Subjective - Physician Review Subjective (Free Text): ICU Progress Note for Dr. Lilly Pt seen and examined at bedside this am. Denies chest pain, sob, observed resting comfortably at bedside. No acute events reported overnight. 12-point ROS obtained, otherwise neg as per pt. CCU Objective - Vital Signs / Intake & Output Vital Signs (Last 4 hours): Vital Signs Temp Pulse Resp BP Pulse Ox 01/07/19 06:00 83 14 99 01/07/19 05:56 81 8 L 117/70 100 01/07/19 05:00 75 22 99 01/07/19 04:56 78 19 94/64 L 100 01/07/19 04:00 99.5 F 84 19 99 01/07/19 03:56 83 19 99/69 L 100 Intake and Output (Last 8hrs): Intake & Output 01/06/19 01/07/19 01/07/19 22:59 06:59 14:59 Intake Total 650 150 Output Total 1475 600 Balance -825 -450 Weight 157 lb Intake: Intake, IV Amount 250 right hand 250 Oral 400 150 Output: Urine 1475 600 Urine, Voided 1475 600 Other: # Voids Urine, Voided 1 2 # Bowel Movements 0 0 - Physical Exam Head: Positive for: Atraumatic, Normocephalic Pupils: Positive for: PERRL Extroacular Muscles: Positive for: EOMI Conjunctiva: Positive for: Normal Mouth: Positive for: Moist Mucous Membranes Neck: Positive for: Normal Range of Motion. Negative for: JVD, Lymphadenopathy Respiratory/Chest: Positive for: Clear to Auscultation, Good Air Exchange. Negative for: Respiratory Distress, Wheezes, Rales, Rhonchi Cardiovascular: Positive for: Regular Rate and Rhythm, Normal S1, S2. Negative for: Murmurs, Rub, Gallop Abdomen: Positive for: Normal Bowel Sounds. Negative for: Tenderness, Distention, Mass/Organomegaly Upper Extremity: Positive for: Normal Inspection, Normal ROM, NORMAL PULSES, Neurovascularly Intact, Capillary Refill < 2s. Negative for: Cyanosis, Edema Lower Extremity: Positive for: NORMAL PULSES, Normal ROM, Neurovascularly Intact, Capillary Refill < 2 s, Other (Hematoma 5 cm in size present at site of catheter insertion in R groin, c/d/i, mildly tender to palpation). Negative for: Edema Skin: Positive for: Warm, Dry Psychiatric: Positive for: Alert, Oriented x 3 - Medications Active Medications: Active Medications Generic Name Dose Route Start Last Admin Trade Name Freq PRN Reason Stop Dose Admin Acetylcysteine 6 ml 01/06/19 13:45 01/07/19 01:00 Acetylcysteine 20% PO 01/08/19 01:46 6 ml Q12H [facility] Administration Aspirin 81 mg 01/06/19 10:00 01/06/19 10:11 Aspirin Chewable PO 81 mg DAILY [facility] Administration Famotidine 20 mg 01/06/19 02:30 01/06/19 21:59 Pepcid IVP 20 mg Q12 [facility] Administration Heparin Sodium (Porcine) 5,000 units 01/06/19 14:00 01/07/19 05:54 Heparin SC 5,000 units Q8 [facility] Administration Lisinopril 2.5 mg 01/07/19 10:00 Zestril PO DAILY [facility] Metoprolol Tartrate 25 mg 01/06/19 10:00 01/06/19 22:00 Lopressor PO 25 mg Q12 [facility] Administration Nicotine 1 patch 01/06/19 15:15 01/06/19 16:07 Nicoderm Cq TD 1 patch DAILY [facility] Administration Rosuvastatin Calcium 10 mg 01/06/19 22:00 01/06/19 22:00 Crestor PO 10 mg HS [facility] Administration Tamsulosin HCl 0.4 mg 01/06/19 15:15 01/06/19 16:07 Flomax PO 0.4 mg DAILY [facility] Administration Ticagrelor 90 mg 01/06/19 10:00 01/06/19 17:44 Brilinta PO 90 mg BID [facility] Administration - Patient Studies Lab Studies: Microbiology Studies 01/06/19 08:50 MRSA Culture (Admit) - Preliminary [place] MRSA NOT DETECTED Lab Studies 01/07/19 01/07/19 01/07/19 Range/Units 06:00 06:00 06:00 WBC 9.4 (4.8-10.8) K/uL RBC 4.42 (4.40-5.90) Mil/uL Hgb 13.5 (12.0-18.0) g/dL Hct 41.0 (35.0-51.0) % MCV 92.8 (80.0-94.0) fL MCH 30.5 (27.0-31.0) pg MCHC 32.8 L (33.0-37.0) g/dL RDW 13.7 (11.5-14.5) % Plt Count 215 (130-400) K/uL MPV 8.6 (7.2-11.7) fL Neut % (Auto) 79.5 H (50.0-75.0) % Lymph % (Auto) 11.2 L (20.0-40.0) % [place] % (Auto) 8.9 (0.0-10.0) % Eos % (Auto) 0.2 (0.0-4.0) % Baso % (Auto) 0.2 (0.0-2.0) % Neut # (Auto) 7.5 H (1.8-7.0) K/uL Lymph # (Auto) 1.0 (1.0-4.3) K/uL [place] # (Auto) 0.8 (0.0-0.8) K/uL Eos # (Auto) 0.0 (0.0-0.7) K/uL Baso # (Auto) 0.0 (0.0-0.2) K/uL Sodium 131 L (132-148) mmol/L Potassium 4.4 (3.6-5.2) mmol/L Chloride 99 (98-107) mmol/L Carbon Dioxide 27 (22-30) mmol/L Anion Gap 10 (10-20) BUN 12 (9-20) mg/dL Creatinine 0.7 L (0.8-1.5) mg/dL Est GFR ( Amer) > 60 Est GFR (Non-Af Amer) > 60 Random Glucose 134 H (75-110) mg/dL Hemoglobin A1c (4.2-6.5) % Lactic Acid 1.8 (0.7-2.1) mmol/L Calcium 9.2 (8.6-10.4) mg/dl Phosphorus 2.0 L (2.5-4.5) mg/dL Magnesium 1.9 (1.6-2.3) mg/dL Total Bilirubin 1.0 (0.2-1.3) mg/dL AST 199 H D (17-59) U/L ALT 38 (21-72) U/L Alkaline Phosphatase 65 (38-126) U/L Troponin I 34.6000 H* (0.00-0.120) ng/mL Total Protein 6.6 (6.3-8.3) g/dL Albumin 3.8 (3.5-5.0) g/dL Globulin 2.7 (2.2-3.9) gm/dL Albumin/Globulin Ratio 1.4 (1.0-2.1) Triglycerides 104 (0-149) mg/dL Cholesterol 158 (0-199) mg/dL LDL Cholesterol Direct 104 (0-129) mg/dL HDL Cholesterol 40 (30-70) mg/dL 01/06/19 01/06/19 01/06/19 Range/Units 14:46 08:50 08:50 WBC 9.2 (4.8-10.8) K/uL RBC 4.65 (4.40-5.90) Mil/uL Hgb 14.6 (12.0-18.0) g/dL Hct 42.7 (35.0-51.0) % MCV 91.7 (80.0-94.0) fL MCH 31.4 H (27.0-31.0) pg MCHC 34.2 (33.0-37.0) g/dL RDW 13.7 (11.5-14.5) % Plt Count 269 (130-400) K/uL MPV 8.4 (7.2-11.7) fL Neut % (Auto) 73.8 (50.0-75.0) % Lymph % (Auto) 15.9 L (20.0-40.0) % [place] % (Auto) 9.7 (0.0-10.0) % Eos % (Auto) 0.3 (0.0-4.0) % Baso % (Auto) 0.3 (0.0-2.0) % Neut # (Auto) 6.8 (1.8-7.0) K/uL Lymph # (Auto) 1.5 (1.0-4.3) K/uL [place] # (Auto) 0.9 H (0.0-0.8) K/uL Eos # (Auto) 0.0 (0.0-0.7) K/uL Baso # (Auto) 0.0 (0.0-0.2) K/uL Sodium 132 (132-148) mmol/L Potassium 4.7 (3.6-5.2) mmol/L Chloride 99 (98-107) mmol/L Carbon Dioxide 25 (22-30) mmol/L Anion Gap 12 (10-20) BUN 13 (9-20) mg/dL Creatinine 0.5 L (0.8-1.5) mg/dL Est GFR ( Amer) > 60 Est GFR (Non-Af Amer) > 60 Random Glucose 120 H (75-110) mg/dL Hemoglobin A1c (4.2-6.5) % Lactic Acid (0.7-2.1) mmol/L Calcium 8.7 (8.6-10.4) mg/dl Phosphorus 2.9 (2.5-4.5) mg/dL Magnesium 2.1 (1.6-2.3) mg/dL Total Bilirubin 0.7 (0.2-1.3) mg/dL AST 379 H D (17-59) U/L ALT 57 (21-72) U/L Alkaline Phosphatase 74 (38-126) U/L Troponin I 74.1000 H* 134.0000 H* (0.00-0.120) ng/mL Total Protein 6.6 (6.3-8.3) g/dL Albumin 3.9 (3.5-5.0) g/dL Globulin 2.7 (2.2-3.9) gm/dL Albumin/Globulin Ratio 1.5 (1.0-2.1) Triglycerides 88 (0-149) mg/dL Cholesterol 184 (0-199) mg/dL LDL Cholesterol Direct 126 (0-129) mg/dL HDL Cholesterol 43 (30-70) mg/dL 01/06/19 Range/Units 08:50 WBC (4.8-10.8) K/uL RBC (4.40-5.90) Mil/uL Hgb (12.0-18.0) g/dL Hct (35.0-51.0) % MCV (80.0-94.0) fL MCH (27.0-31.0) pg MCHC (33.0-37.0) g/dL RDW (11.5-14.5) % Plt Count (130-400) K/uL MPV (7.2-11.7) fL Neut % (Auto) (50.0-75.0) % Lymph % (Auto) (20.0-40.0) % [place] % (Auto) (0.0-10.0) % Eos % (Auto) (0.0-4.0) % Baso % (Auto) (0.0-2.0) % Neut # (Auto) (1.8-7.0) K/uL Lymph # (Auto) (1.0-4.3) K/uL [place] # (Auto) (0.0-0.8) K/uL Eos # (Auto) (0.0-0.7) K/uL Baso # (Auto) (0.0-0.2) K/uL Sodium (132-148) mmol/L Potassium (3.6-5.2) mmol/L Chloride (98-107) mmol/L Carbon Dioxide (22-30) mmol/L Anion Gap (10-20) BUN (9-20) mg/dL Creatinine (0.8-1.5) mg/dL Est GFR ( Amer) Est GFR (Non-Af Amer) Random Glucose (75-110) mg/dL Hemoglobin A1c 6.2 (4.2-6.5) % Lactic Acid (0.7-2.1) mmol/L Calcium (8.6-10.4) mg/dl Phosphorus (2.5-4.5) mg/dL Magnesium (1.6-2.3) mg/dL Total Bilirubin (0.2-1.3) mg/dL AST (17-59) U/L ALT (21-72) U/L Alkaline Phosphatase (38-126) U/L Troponin I (0.00-0.120) ng/mL Total Protein (6.3-8.3) g/dL Albumin (3.5-5.0) g/dL Globulin (2.2-3.9) gm/dL Albumin/Globulin Ratio (1.0-2.1) Triglycerides (0-149) mg/dL Cholesterol (0-199) mg/dL LDL Cholesterol Direct (0-129) mg/dL HDL Cholesterol (30-70) mg/dL Laboratory Results - last 24 hr 01/06/19 01/06/19 01/06/19 08:50 08:50 08:50 WBC 9.2 RBC 4.65 Hgb 14.6 Hct 42.7 MCV 91.7 MCH 31.4 H MCHC 34.2 RDW 13.7 Plt Count 269 MPV 8.4 Neut % (Auto) 73.8 Lymph % (Auto) 15.9 L [place] % (Auto) 9.7 Eos % (Auto) 0.3 Baso % (Auto) 0.3 Neut # (Auto) 6.8 Lymph # (Auto) 1.5 [place] # (Auto) 0.9 H Eos # (Auto) 0.0 Baso # (Auto) 0.0 Sodium 132 Potassium 4.7 Chloride 99 Carbon Dioxide 25 Anion Gap 12 BUN 13 Creatinine 0.5 L Est GFR ( Amer) > 60 Est GFR (Non-Af Amer) > 60 Random Glucose 120 H Hemoglobin A1c 6.2 Lactic Acid Calcium 8.7 Phosphorus 2.9 Magnesium 2.1 Total Bilirubin 0.7 AST 379 H D ALT 57 Alkaline Phosphatase 74 Troponin I 134.0000 H* Total Protein 6.6 Albumin 3.9 Globulin 2.7 Albumin/Globulin Ratio 1.5 Triglycerides 88 Cholesterol 184 LDL Cholesterol Direct 126 HDL Cholesterol 43 01/06/19 01/07/19 01/07/19 14:46 06:00 06:00 WBC 9.4 RBC 4.42 Hgb 13.5 Hct 41.0 MCV 92.8 MCH 30.5 MCHC 32.8 L RDW 13.7 Plt Count 215 MPV 8.6 Neut % (Auto) 79.5 H Lymph % (Auto) 11.2 L [place] % (Auto) 8.9 Eos % (Auto) 0.2 Baso % (Auto) 0.2 Neut # (Auto) 7.5 H Lymph # (Auto) 1.0 [place] # (Auto) 0.8 Eos # (Auto) 0.0 Baso # (Auto) 0.0 Sodium 131 L Potassium 4.4 Chloride 99 Carbon Dioxide 27 Anion Gap 10 BUN 12 Creatinine 0.7 L Est GFR ( Amer) > 60 Est GFR (Non-Af Amer) > 60 Random Glucose 134 H Hemoglobin A1c Lactic Acid Calcium 9.2 Phosphorus 2.0 L Magnesium 1.9 Total Bilirubin 1.0 AST 199 H D ALT 38 Alkaline Phosphatase 65 Troponin I 74.1000 H* 34.6000 H* Total Protein 6.6 Albumin 3.8 Globulin 2.7 Albumin/Globulin Ratio 1.4 Triglycerides 104 Cholesterol 158 LDL Cholesterol Direct 104 HDL Cholesterol 40 01/07/19 06:00 WBC RBC Hgb Hct MCV MCH MCHC RDW Plt Count MPV Neut % (Auto) Lymph % (Auto) [place] % (Auto) Eos % (Auto) Baso % (Auto) Neut # (Auto) Lymph # (Auto) [place] # (Auto) Eos # (Auto) Baso # (Auto) Sodium Potassium Chloride Carbon Dioxide Anion Gap BUN Creatinine Est GFR ( Amer) Est GFR (Non-Af Amer) Random Glucose Hemoglobin A1c Lactic Acid 1.8 Calcium Phosphorus Magnesium Total Bilirubin AST ALT Alkaline Phosphatase Troponin I Total Protein Albumin Globulin Albumin/Globulin Ratio Triglycerides Cholesterol LDL Cholesterol Direct HDL Cholesterol EKG/Cardiology Studies: Cardiology / EKG Studies 01/06/19 12:25 EKG [ELECTROCARDIOGRAM] Stat Comment: Mode Of Transportation: Reason For Exam: eval post PCI Review of Systems - Constitutional Constitutional: absent: Fever, Chills, Sweats - EENT Eyes: absent: Change in Vision - Cardiovascular Cardiovascular: absent: Chest Pain, Diaphoresis, Dyspnea, Edema, Palpitations, Syncope - Respiratory Respiratory: absent: Cough, Dyspnea, Wheezing - Gastrointestinal Gastrointestinal: absent: Abdominal Pain, Constipation, Diarrhea, Nausea, Vomiting Critical Care Progress Note - Nutrition Nutrition: Nutrition Category Date Time Status Heart Healthy Diet [DIET] Diets 01/06/19 Breakfast Active Assessment/Plan - Assessment and Plan (Free Text) Assessment: 63 y o male PMhx HTN, admitted as Code Heart, s/p cardiac cath with PCI, NAEEM of RCA performed by Dr. Alfaro. Currently being monitored in ICU post-procedure. Plan: Neuro: -AAOx3, no gross deficits on exam -Cont to monitor Cardio: -Code Heart, acute STEMI -Trops: <0.0120 => 134 => 74.1 => 34.6 -EKG on admission demonstrated STEMI in leads II, III, aVF -S/p cardiac cath with PCI, NAEEM of RCA performed by Dr. Alfaro -Will likely need future intervention for LAD -Dr. Alfaro (Cardiology) consulted, recs appreciated -Echo done, results pending -ASA, beta-brayden, statin, ACEi -Brilinta bid -Smoking cessation advised -Hx HLD Lipid panel wnl, c/w Crestor -Hx HTN Lisinopril, Lopressor Pulm: -Saturating well on NC, cont to monitor -Hx tobacco abuse Cessation advised and counseling provided to pt at bedside Nicotine patch daily GI: -HHD -Pepcid daily -No acute issues at this time Endo: -Hx IGT A1c 6.0 Renal: -BUN/Cr 12/0.7 -Cont to trend I's/O's -Hx kidney stone Flomax daily C/w PO hydration HHD Heme: -H/H 13.5/41.0 -No leukocytosis -Cont to monitor PPX: -Pepcid daily -Heparin q8h sc Pt seen, examined with, and plan discussed with Dr. Lilly, attending physician. Fred Jiménez DO PGY-1, [facility] [employer] Pager #[phone]
--- NOTE | 2019-01-07 08:07 | CP.PCM.PN ---
Subjective - Date & Time of Evaluation Date of Evaluation: 01/07/19 Time of Evaluation: 08:00 - Subjective Subjective: Medical Attending Note: Patient seen and examined at bedside. Patient seen with daughter #2 and at bedside. Patient reports nausea, denies headache, denies chest pain, denies shortness of breathe, denies abdominal pain, denies nausea, denies vomitting, reports had bowel movement yesterday. Patient noted hematoma over the right groin, nontender. Patient is lying in bed, but noted aggravated back pain from lumbar stenosis. Objective - Vital Signs/Intake and Output Vital Signs (last 24 hours): Temp Pulse Resp BP Pulse Ox 99.5 F 83 14 117/70 99 01/07/19 04:00 01/07/19 06:00 01/07/19 06:00 01/07/19 05:56 01/07/19 06:00 Intake and Output: 01/07/19 01/07/19 06:59 18:59 Intake Total 440 Output Total 1250 Balance -810 - Medications Medications: Current Medications Acetylcysteine (Acetylcysteine 20%) 6 ml PO Q12H [facility] Stop: 01/08/19 01:46 Last Admin: 01/07/19 01:00 Dose: 6 ml Aspirin (Aspirin Chewable) 81 mg PO DAILY [facility] Last Admin: 01/06/19 10:11 Dose: 81 mg Famotidine (Pepcid) 20 mg IVP Q12 [facility] Last Admin: 01/06/19 21:59 Dose: 20 mg Heparin Sodium (Porcine) (Heparin) 5,000 units SC Q8 [facility] Last Admin: 01/07/19 05:54 Dose: 5,000 units Lisinopril (Zestril) 2.5 mg PO DAILY [facility] Metoprolol Tartrate (Lopressor) 25 mg PO Q12 [facility] Last Admin: 01/06/19 22:00 Dose: 25 mg Nicotine (Nicoderm Cq) 1 patch TD DAILY [facility] Last Admin: 01/06/19 16:07 Dose: 1 patch Rosuvastatin Calcium (Crestor) 10 mg PO HS [facility] Last Admin: 01/06/19 22:00 Dose: 10 mg Tamsulosin HCl (Flomax) 0.4 mg PO DAILY [facility] Last Admin: 01/06/19 16:07 Dose: 0.4 mg Ticagrelor (Brilinta) 90 mg PO BID [facility] Last Admin: 01/06/19 17:44 Dose: 90 mg - Labs Labs: 01/07/19 06:00 01/07/19 06:00 PT 11.9 SECONDS (9.7-12.2) 01/06/19 00:12 INR 1.1 01/06/19 00:12 APTT 29 SECONDS (21-34) 01/06/19 00:12 - Constitutional Appears: Non-toxic, No Acute Distress - Head Exam Head Exam: NORMAL INSPECTION - Eye Exam Eye Exam: EOMI - ENT Exam ENT Exam: Mucous Membranes Moist - Respiratory Exam Respiratory Exam: Clear to Ausculation Bilateral, NORMAL BREATHING PATTERN. absent: Rales, Rhonchi, Wheezes - Cardiovascular Exam Cardiovascular Exam: REGULAR RHYTHM, +S1, +S2 - GI/Abdominal Exam GI & Abdominal Exam: Soft, Normal Bowel Sounds. absent: Distended, Firm, Guarding, Rigid, Tenderness, Rebound - Extremities Exam Extremities Exam: absent: Pedal Edema, Tenderness - Back Exam Back Exam: absent: CVA tenderness (L), CVA tenderness (R) - Neurological Exam Neurological Exam: Alert, Awake, Oriented x3 Neuro motor strength exam: Left Upper Extremity: 5, Right Upper Extremity: 5, Left Lower Extremity: 5, Right Lower Extremity: 5 - Skin Skin Exam: Dry, Warm Additional comments: right cath groin: nontender, mild ecchymoses, mild swelling DP+ present b/l Assessment and Plan (1) Acute ST elevation myocardial infarction (STEMI) Status: Acute (2) Smoker Status: Acute (3) Impaired glucose tolerance Status: Acute (4) CAD (coronary artery disease) Status: Acute (5) HLD (hyperlipidemia) Status: Chronic (6) HTN (hypertension) Status: Chronic (7) Kidney stone Status: Chronic (8) Prophylactic measure Status: Acute Attending/Attestation - Attestation I have personally seen and examined this patient.: Yes I have fully participated in the care of the patient.: Yes I have reviewed all pertinent clinical information, including history, physical exam and plan: Yes Notes (Text): (1) Acute ST elevation myocardial infarction (STEMI) Assessment & Plan: code heart Pt subsequently underwent cardiac cath with PCI, NAEEM to RCA. Patient will need future intervention for LAD. aspirin, beta brayden, statin, tiana inhibitor, Status: Acute (2) Smoker Assessment & Plan: advised to stop smoking--->repeatedly nictone patch daily Status: Acute (3) Impaired glucose tolerance Assessment & Plan: a1c: 6.0 Status: Acute (4) CAD (coronary artery disease) Assessment & Plan: Cardiology (Dr. Alfaro) on case-->help appreciated Echocardiogram code heart aspirin, brilinta, statin, tiana inhibitor, beta brayden smoking cessation stress relief methods such as yoga to promote mindfulness Status: Acute (5) HLD (hyperlipidemia) Assessment & Plan: crestor 20mg poqHS lipid panel in AM Status: Chronic (6) HTN (hypertension) Assessment & Plan: Lisinopril 2.5mg PO Daily lopressor 25mg PO bid advised smoking prevention--->30 pack year smoking; had quit and then resumed chain smoker advised to stop smoking, given risk factor for CAD, in addition to cancer, premature aging Status: Chronic (7) Kidney stone Assessment & Plan: flomax 0.4mg PO daily po hydration heart healthy diet Status: Chronic (8) History of Lumbar Stenosis Assessment & Plan: (9) Prophylactic measure Assessment & Plan: patient is off integrlin Gentle iv fluid heparin 5000 unit sub8H PT eval Status: Acute
[2019-01-07] MEDS ORDERED: Magnesium Citrate Oral SOL (300 ml) PO ONE (10:03)
[2019-01-07] MEDS ORDERED: Potassium & Sodium Phosphate PO ONE (10:30)
[2019-01-07] MEDS ORDERED: Magnesium Oxide 400 mg Tab UD PO ONE (11:00)
--- NOTE | 2019-01-07 17:12 | CARD ---
APPROVED REPORT Date of service: 01/05/2019 EKG Measurement Heart [id number] <Conclusion> Sinus rhythm with 1st degree AV block ST elevation, consider inferolateral injury or acute infarct ACUTE LA / STEMI Consider right ventricular involvement in acute inferior infarct Abnormal ECG
--- NOTE | 2019-01-07 18:18 | CP.PCM.PN ---
Subjective - Date & Time of Evaluation Date of Evaluation: 01/07/19 Time of Evaluation: 18:15 - Subjective Subjective: No new complaints. Resting comfortably. Objective - Vital Signs/Intake and Output Vital Signs (last 24 hours): Temp Pulse Resp BP Pulse Ox 98.2 F 74 21 108/81 100 01/07/19 16:00 01/07/19 17:22 01/07/19 17:22 01/07/19 17:22 01/07/19 17:22 Intake and Output: 01/07/19 01/07/19 06:59 18:59 Intake Total 440 960 Output Total 1250 1000 Balance -810 -40 - Medications Medications: Current Medications Acetaminophen (Tylenol 325mg Tab) 650 mg PO Q6 PRN PRN Reason: Pain, moderate (4-7) Acetylcysteine (Acetylcysteine 20%) 6 ml PO Q12H [facility] Stop: 01/08/19 01:46 Last Admin: 01/07/19 14:20 Dose: 6 ml Aspirin (Aspirin Chewable) 81 mg PO DAILY [facility] Last Admin: 01/07/19 09:46 Dose: 81 mg Docusate Sodium (Colace) 100 mg PO BID [facility] Last Admin: 01/07/19 17:22 Dose: 100 mg Famotidine (Pepcid) 20 mg PO DAILY [facility] Heparin Sodium (Porcine) (Heparin) 5,000 units SC Q8 [facility] Last Admin: 01/07/19 14:16 Dose: 5,000 units Influenza Virus Vaccine (Flucelvax Quad [id number] Syr) 60 mcg IM .ONCE ONE Stop: 01/08/19 12:01 Lisinopril (Zestril) 2.5 mg PO DAILY [facility] Last Admin: 01/07/19 11:10 Dose: 2.5 mg Metoprolol Tartrate (Lopressor) 25 mg PO Q12 [facility] Last Admin: 01/07/19 09:46 Dose: 25 mg Nicotine (Nicoderm Cq) 1 patch TD DAILY [facility] Last Admin: 01/07/19 09:46 Dose: 1 patch Pneumococcal Polyvalent Vaccine (Pneumovax 23 Vaccine) 0.5 ml SC .ONCE ONE Stop: 01/08/19 12:01 Rosuvastatin Calcium (Crestor) 10 mg PO HS [facility] Last Admin: 01/06/19 22:00 Dose: 10 mg Tamsulosin HCl (Flomax) 0.4 mg PO DAILY [facility] Last Admin: 01/07/19 09:46 Dose: 0.4 mg Ticagrelor (Brilinta) 90 mg PO BID [facility] Last Admin: 01/07/19 17:22 Dose: 90 mg - Labs Labs: 01/07/19 06:00 01/07/19 06:00 PT 11.9 SECONDS (9.7-12.2) 01/06/19 00:12 INR 1.1 01/06/19 00:12 APTT 29 SECONDS (21-34) 01/06/19 00:12 - Eye Exam Pupil Exam: NORMAL ACCOMODATION - Neck Exam Neck Exam: Normal Inspection - Respiratory Exam Respiratory Exam: NORMAL BREATHING PATTERN - Cardiovascular Exam Cardiovascular Exam: REGULAR RHYTHM - Extremities Exam Extremities Exam: Normal Inspection Additional comments: Right groin no bleeding no hamatoma. - Neurological Exam Neurological Exam: Alert, Oriented x3 Assessment and Plan (1) CAD (coronary artery disease) Assessment & Plan: Stable Risk factor modification. Smoking cessation. Status: Acute (2) Acute ST elevation myocardial infarction (STEMI) Assessment & Plan: DAPT , Stable Echo infero-basal akinesis. May D/C home. Follow-up as out patient. Status: Acute (3) HTN (hypertension) Status: Chronic
--- NOTE | 2019-01-07 20:58 | CARD ---
APPROVED REPORT Date of service: 01/07/2019 EXAM: Two-dimensional and M-mode echocardiogram with Doppler and color Doppler. Other Information Quality : GoodRhythm : INDICATION Acute [place] Cardiac Disease: CAD Surgery/Intervention Status/Post Intervention: Stent RISK FACTORS Hypertension Hyperlipidemia Smoking 2D DIMENSIONS IVSd1.2 (0.7-1.1cm)LVDd4.9 (3.9-5.9cm) PWd1.2 (0.7-1.1cm)LA [id number] (18-58mL) LVDs2.9 (2.5-4.0cm)FS (%) 40.7 % LVEF (%)53.0 (>50%)LVEF (Gómez's)60.30 % IVC0.00 cm M-Mode DIMENSIONS RVDd1.55 (2.1-3.2cm)Left Atrium (MM)2.68 (2.5-4.0cm) IVSd1.40 (0.7-1.1cm)Aortic Root3.81 (2.2-3.7cm) LVDd5.01 (4.0-5.6cm)Aortic Cusp Exc.2.30 (1.5-2.0cm) PWd1.12 (0.7-1.1cm)FS (%) 28 % LVDs3.58 (2.0-3.8cm)TAPSE15.62 cm LVEF (%)55 (>50%) Mitral Valve MV E Tfvjdeqn78.2cm/sMV A Edacvrul33.5cm/sE/A ratio0.9 TDI Lateral E' Peak V8.93cm/sMedial E' Peak V5.13cm/sE/Lateral E'7.0 E/Medial E'12.1 LEFT VENTRICLE The left ventricle is normal size. There is mild concentric left ventricular hypertrophy. Left ventricle systolic function is normal. The Ejection Fraction is 60-65%. There is normal LV segmental wall motion. Tissue Doppler imaging reveals abnormal left ventricular diastolic dysfunction. No left ventricle thrombus noted on this study. RIGHT VENTRICLE The right ventricle is normal size. There is normal right ventricular wall thickness. The right ventricular systolic function is normal. ATRIA The left atrium size is normal. The right atrium size is normal. The interatrial septum is intact with no evidence for an atrial septal defect. AORTIC VALVE The aortic valve is normal in structure. No aortic regurgitation is present. There is no aortic valvular stenosis. There is no aortic valvular vegetation. MITRAL VALVE The mitral valve is normal in structure. There is no evidence of mitral valve prolapse. There is no mitral valve stenosis. Mitral regurgitation is mild. TRICUSPID VALVE The tricuspid valve is normal in structure. There is trace tricuspid regurgitation. There is no pulmonary hypertension. PULMONIC VALVE The pulmonic valve is not well visualized. There is mild pulmonic valvular regurgitation. GREAT VESSELS The aortic root is normal in size. PERICARDIAL EFFUSION There is no significant pericardial effusion. <Conclusion> Left ventricle systolic function is normal. The Ejection Fraction is 60-65%. Hypertensive heart disease. Diastolic dysfunction. No aortic regurgitation is present. Mitral regurgitation is mild. There is trace tricuspid regurgitation. There is no pulmonary hypertension. There is mild pulmonic valvular regurgitation.
[2019-01-08] MEDS: Acetylcysteine 20% Inhal Soln (4ml) PO SCH (01:53)
[2019-01-08 04:48] VITALS: O2SAT 98
[2019-01-08 06:25] LABS: BASO % 0.4 % (0.0-2.0); EOS # 0.1 K/uL (0.0-0.7); EOS % 1.1 % (0.0-4.0); HEMOGLOBIN 12.5 g/dL (12.0-18.0); LYMPH # 1.3 K/uL (1.0-4.3); LYMPH % 23.5 % (20.0-40.0); MEAN CELL VOLUME 91.8 fL (80.0-94.0); MEAN CORPUSCULAR HEMOGLOBIN 30.9 pg (27.0-31.0); MEAN CORPUSCULAR HGB CONC 33.7 g/dL (33.0-37.0); MEAN PLATELET VOLUME 8.7 fL (7.2-11.7); MONO % 17.8 % (0.0-10.0); NEUT # 3.1 K/uL (1.8-7.0); NEUT % 57.2 % (50.0-75.0); RBC 4.03 Mil/uL (4.40-5.90); RED CELL DISTRIBUTION WIDTH 13.6 % (11.5-14.5); WHITE BLOOD COUNT 5.4 K/uL (4.8-10.8)
[2019-01-08 06:41] LABS: ALB/GLOB RATIO 1.3 (1.0-2.1); ALBUMIN 3.5 g/dL (3.5-5.0); ALT/SGPT 40 U/L (21-72); AST/SGOT 103 U/L (17-59); BLOOD UREA NITROGEN 10 mg/dL (9-20); CALCIUM 9.1 mg/dl (8.6-10.4); GFR NON-AFRICAN AMERICAN > 60
[2019-01-08 08:51] VITALS: RESP 17
--- NOTE | 2019-01-08 10:06 | CP.PCM.DIS ---
<Savage Dudley - Last Filed: 01/08/19 18:09> Provider - Provider Date of Admission: 01/06/19 00:39 Attending physician: Natali Swann DO Consults: 01/06/19 03:51 Cardiology Consult Routine Comment: Consulting Provider: Panda Alfaro Consulting Physician: Panda Alfaro Reason for Consult: STEMI s/p PCI Critical Care Consult Routine Comment: Consulting Provider: Devang Redman Consulting Physician: Devang Redman Reason for Consult: STEMI s/p PCI Time Spent in preparation of Discharge (in minutes): 180 Diagnosis - Discharge Diagnosis (1) CAD (coronary artery disease) Status: Acute (2) Impaired glucose tolerance Status: Acute (3) HLD (hyperlipidemia) Status: Chronic (4) HTN (hypertension) Status: Chronic (5) Smoker Status: Chronic Hospital Course - Lab Results Lab Results: Micro Results 01/06/19 08:50 Naris MRSA Culture (Admit) - Final MRSA NOT DETECTED Most Recent Lab Values WBC 5.4 K/uL (4.8-10.8) 01/08/19 06:15 RBC 4.03 Mil/uL (4.40-5.90) L 01/08/19 06:15 Hgb 12.5 g/dL (12.0-18.0) 01/08/19 06:15 Hct 37.0 % (35.0-51.0) 01/08/19 06:15 MCV 91.8 fL (80.0-94.0) 01/08/19 06:15 MCH 30.9 pg (27.0-31.0) 01/08/19 06:15 MCHC 33.7 g/dL (33.0-37.0) 01/08/19 06:15 RDW 13.6 % (11.5-14.5) 01/08/19 06:15 Plt Count 190 K/uL (130-400) 01/08/19 06:15 MPV 8.7 fL (7.2-11.7) 01/08/19 06:15 Neut % (Auto) 57.2 % (50.0-75.0) 01/08/19 06:15 Lymph % (Auto) 23.5 % (20.0-40.0) 01/08/19 06:15 Shoshone % (Auto) 17.8 % (0.0-10.0) H 01/08/19 06:15 Eos % (Auto) 1.1 % (0.0-4.0) 01/08/19 06:15 Baso % (Auto) 0.4 % (0.0-2.0) 01/08/19 06:15 Neut # (Auto) 3.1 K/uL (1.8-7.0) 01/08/19 06:15 Lymph # (Auto) 1.3 K/uL (1.0-4.3) 01/08/19 06:15 [place]oshone # (Auto) 1.0 K/uL (0.0-0.8) H 01/08/19 06:15 Eos # (Auto) 0.1 K/uL (0.0-0.7) 01/08/19 06:15 Baso # (Auto) 0.0 K/uL (0.0-0.2) 01/08/19 06:15 PT 11.9 SECONDS (9.7-12.2) 01/06/19 00:12 INR 1.1 01/06/19 00:12 APTT 29 SECONDS (21-34) 01/06/19 00:12 Sodium 135 mmol/L (132-148) 01/08/19 06:15 Potassium 4.1 mmol/L (3.6-5.2) 01/08/19 06:15 Chloride 103 mmol/L (98-107) 01/08/19 06:15 Carbon Dioxide 26 mmol/L (22-30) 01/08/19 06:15 Anion Gap 10 (10-20) 01/08/19 06:15 BUN 10 mg/dL (9-20) 01/08/19 06:15 Creatinine 0.8 mg/dL (0.8-1.5) 01/08/19 06:15 Est GFR ( Amer) > 60 01/08/19 06:15 Est GFR (Non-Af Amer) > 60 01/08/19 06:15 Random Glucose 105 mg/dL (75-110) D 01/08/19 06:15 Hemoglobin A1c 6.2 % (4.2-6.5) 01/06/19 08:50 Lactic Acid 1.8 mmol/L (0.7-2.1) 01/07/19 06:00 Calcium 9.1 mg/dl (8.6-10.4) 01/08/19 06:15 Phosphorus 2.8 mg/dL (2.5-4.5) 01/08/19 06:15 Magnesium 2.0 mg/dL (1.6-2.3) 01/08/19 06:15 Total Bilirubin 0.4 mg/dL (0.2-1.3) 01/08/19 06:15 AST 103 U/L (17-59) H D 01/08/19 06:15 ALT 40 U/L (21-72) 01/08/19 06:15 Alkaline Phosphatase 65 U/L (38-126) 01/08/19 06:15 Troponin I 34.6000 ng/mL (0.00-0.120) H* 01/07/19 06:00 Total Protein 6.2 g/dL (6.3-8.3) L 01/08/19 06:15 Albumin 3.5 g/dL (3.5-5.0) 01/08/19 06:15 Globulin 2.7 gm/dL (2.2-3.9) 01/08/19 06:15 Albumin/Globulin Ratio 1.3 (1.0-2.1) 01/08/19 06:15 Triglycerides 104 mg/dL (0-149) 01/07/19 06:00 Cholesterol 158 mg/dL (0-199) 01/07/19 06:00 LDL Cholesterol Direct 104 mg/dL (0-129) 01/07/19 06:00 HDL Cholesterol 40 mg/dL (30-70) 01/07/19 06:00 Blood Type B POSITIVE 01/05/19 00:18 Antibody Screen Negative 01/05/19 00:18 - Hospital Course Hospital Course: On admission: Patient is a 63 year old male w/ pmhx of HTN who presented to ED as a "code heart". Pt reports he began having intense restrosternal chest pressure approximately 20 minutes prior to calling EMS. Pt attempted to alleviate the pain by taking his unknown antihypertensive medication(which he is not compliant w/) and by taking an antacid, w/ no relief of symptoms. Pt and family then called EMS to bring him to the hospital for further evaluation. EKG by EMS revealed a STEMI, elevated trops. pt was given ASA, NG, brilinta, IVF prior to arrival. Pt subsequently underwent cardiac cath with PCI, NAEEM to RCA. On hospitalization Patient admitted to ICU after cath, post cath EKG revealed resolution of ST elevation on II/III/AVF. As per Dr Alfaro, Patient will need future intervention for LAD. Echo findings - eF 60-65%, HTN heart diseae, diastolic dysfunction, no aortic regurg, mitral regurg is mild, trace tricuspid regurg, no pulmonary hyp ertension, mild pulmonic valvular regurgitation. Patient placed on aspirin, beta brayden, statin, kareem inhibitor, brilinta and crestor. Patient hx of kidney stone, placed on flomax and encouraged po hydration. for hx of tobacco use disorder, patient encourage smoking cessation, given nicotine patch. DVT with heparin SC and pepcid for GI ppx. On discharge: The following instructions were given to patient at discharge: Patient is medically stable for discharge. Patient to follow-up with Dr. Alfaro tomorrow at his office at 4pm to setup intervention for LAD. Prescriptions: 1) Aspirin 81mg PO daily 2) Brilinta 90mg PO BID 1 month supply 3) Crestor 10mg POqHS 4) Lopressor 25mg PO BID 5) Lisinopril 2.5mg PO daily 6) Flomax 0.4mg PO daily Patient to follow-up with his PMD: Dr Branham within one week of hospitalization This is ashort summary of patient's hospitalization course. For more information, please refer to EMR. - Date & Time of H&P Date of H&P: 01/06/19 Time of H&P: 03:55 Discharge Exam - Head Exam Head Exam: NORMAL INSPECTION - Eye Exam Eye Exam: EOMI, Normal appearance, PERRL - ENT Exam ENT Exam: Normal Exam - Neck Exam Neck exam: Full Rom, Normal Inspection - Respiratory Exam Respiratory Exam: Clear to PA & Lateral, NORMAL BREATHING PATTERN, UNREMARKABLE - Cardiovascular Exam Cardiovascular Exam: REGULAR RHYTHM, +S1, +S2 - GI/Abdominal Exam GI & Abdominal Exam: Normal Bowel Sounds, Unremarkable - Extremities Exam Extremities exam: full ROM, normal inspection - Back Exam Back exam: NORMAL INSPECTION - Neurological Exam Neurological exam: Alert, Oriented x3 - Psychiatric Exam Psychiatric exam: Normal Affect, Normal Mood - Skin Skin Exam: Dry, Warm Additional comments: echymosis over right inguinal area, chronic, nontender to palpation Discharge Plan - Discharge Medications Prescriptions: Aspirin [Aspirin Chewable] 81 mg PO DAILY #30 chew Lisinopril [Zestril] 2.5 mg PO DAILY #30 tab Metoprolol Tartrate [Lopressor] 25 mg PO Q12 #60 tab Rosuvastatin Calcium [Crestor] 10 mg PO HS #30 tab Tamsulosin [Flomax] 0.4 mg PO DAILY #30 cap Ticagrelor [Brilinta] 90 mg PO BID #60 tab - Follow Up Plan Condition: GOOD Disposition: HOME/ ROUTINE Instructions: Heart Attack, Heart Healthy Diet, Smoking: Not Just Harmful to Your Lungs and Heart, Heart Attack (DC), Heart Attack Recovery, Medicines After a Heart Attack, Quitting Smoking, What Can Go Wrong After a Heart Attack?, Clot Dissolving Drugs for Heart Attack or Stroke, Going Home on Blood Thinners , Drugs to Help You Stop Using Tobacco Additional Instructions: Patient is medically stable for discharge. Patient to follow-up with Dr. Alfaro tomorrow at his office at 4pm to setup intervention for LAD. Prescriptions: 1) Aspirin 81mg PO daily 2) Brilinta 90mg PO BID 1 month supply 3) Crestor 10mg POqHS 4) Lopressor 25mg PO BID 5) Lisinopril 2.5mg PO daily 6) Flomax 0.4mg PO daily Patient to follow-up with his PMD: Dr Branham within one week of hospitalization If patient's symptoms of chest pain re appear or worsen, please return to the ER Referrals: Panda Alfaro MD [Staff Provider] - <Natali Swann V - Last Filed: 01/08/19 18:40> Provider - Provider Date of Admission: 01/06/19 00:39 Attending physician: Natali Swann DO Consults: 01/06/19 03:51 Cardiology Consult Routine Comment: Consulting Provider: Panda Alfaro Consulting Physician: Panda Alfaro Reason for Consult: STEMI s/p PCI Critical Care Consult Routine Comment: Consulting Provider: Devang Redman Consulting Physician: Devang Redman Reason for Consult: STEMI s/p PCI Diagnosis - Discharge Diagnosis (1) Acute ST elevation myocardial infarction (STEMI) Status: Acute (2) Smoker Status: Chronic (3) Impaired glucose tolerance Status: Acute (4) CAD (coronary artery disease) Status: Acute (5) HLD (hyperlipidemia) Status: Chronic (6) HTN (hypertension) Status: Chronic (7) Kidney stone Status: Chronic (8) Prophylactic measure Status: Acute Hospital Course - Lab Results Lab Results: Micro Results 01/06/19 08:50 Naris MRSA Culture (Admit) - Final MRSA NOT DETECTED Most Recent Lab Values WBC 5.4 K/uL (4.8-10.8) 01/08/19 06:15 RBC 4.03 Mil/uL (4.40-5.90) L 01/08/19 06:15 Hgb 12.5 g/dL (12.0-18.0) 01/08/19 06:15 Hct 37.0 % (35.0-51.0) 01/08/19 06:15 MCV 91.8 fL (80.0-94.0) 01/08/19 06:15 MCH 30.9 pg (27.0-31.0) 01/08/19 06:15 MCHC 33.7 g/dL (33.0-37.0) 01/08/19 06:15 RDW 13.6 % (11.5-14.5) 01/08/19 06:15 Plt Count 190 K/uL (130-400) 01/08/19 06:15 MPV 8.7 fL (7.2-11.7) 01/08/19 06:15 Neut % (Auto) 57.2 % (50.0-75.0) 01/08/19 06:15 Lymph % (Auto) 23.5 % (20.0-40.0) 01/08/19 06:15 [place]oshone % (Auto) 17.8 % (0.0-10.0) H 01/08/19 06:15 Eos % (Auto) 1.1 % (0.0-4.0) 01/08/19 06:15 Baso % (Auto) 0.4 % (0.0-2.0) 01/08/19 06:15 Neut # (Auto) 3.1 K/uL (1.8-7.0) 01/08/19 06:15 Lymph # (Auto) 1.3 K/uL (1.0-4.3) 01/08/19 06:15 [place]oshone # (Auto) 1.0 K/uL (0.0-0.8) H 01/08/19 06:15 Eos # (Auto) 0.1 K/uL (0.0-0.7) 01/08/19 06:15 Baso # (Auto) 0.0 K/uL (0.0-0.2) 01/08/19 06:15 PT 11.9 SECONDS (9.7-12.2) 01/06/19 00:12 INR 1.1 01/06/19 00:12 APTT 29 SECONDS (21-34) 01/06/19 00:12 Sodium 135 mmol/L (132-148) 01/08/19 06:15 Potassium 4.1 mmol/L (3.6-5.2) 01/08/19 06:15 Chloride 103 mmol/L (98-107) 01/08/19 06:15 Carbon Dioxide 26 mmol/L (22-30) 01/08/19 06:15 Anion Gap 10 (10-20) 01/08/19 06:15 BUN 10 mg/dL (9-20) 01/08/19 06:15 Creatinine 0.8 mg/dL (0.8-1.5) 01/08/19 06:15 Est GFR ( Amer) > 60 01/08/19 06:15 Est GFR (Non-Af Amer) > 60 01/08/19 06:15 Random Glucose 105 mg/dL (75-110) D 01/08/19 06:15 Hemoglobin A1c 6.2 % (4.2-6.5) 01/06/19 08:50 Lactic Acid 1.8 mmol/L (0.7-2.1) 01/07/19 06:00 Calcium 9.1 mg/dl (8.6-10.4) 01/08/19 06:15 Phosphorus 2.8 mg/dL (2.5-4.5) 01/08/19 06:15 Magnesium 2.0 mg/dL (1.6-2.3) 01/08/19 06:15 Total Bilirubin 0.4 mg/dL (0.2-1.3) 01/08/19 06:15 AST 103 U/L (17-59) H D 01/08/19 06:15 ALT 40 U/L (21-72) 01/08/19 06:15 Alkaline Phosphatase 65 U/L (38-126) 01/08/19 06:15 Troponin I 34.6000 ng/mL (0.00-0.120) H* 01/07/19 06:00 Total Protein 6.2 g/dL (6.3-8.3) L 01/08/19 06:15 Albumin 3.5 g/dL (3.5-5.0) 01/08/19 06:15 Globulin 2.7 gm/dL (2.2-3.9) 01/08/19 06:15 Albumin/Globulin Ratio 1.3 (1.0-2.1) 01/08/19 06:15 Triglycerides 104 mg/dL (0-149) 01/07/19 06:00 Cholesterol 158 mg/dL (0-199) 01/07/19 06:00 LDL Cholesterol Direct 104 mg/dL (0-129) 01/07/19 06:00 HDL Cholesterol 40 mg/dL (30-70) 01/07/19 06:00 Blood Type B POSITIVE 01/05/19 00:18 Antibody Screen Negative 01/05/19 00:18 Attending/Attestation - Attestation I have personally seen and examined this patient.: Yes I have fully participated in the care of the patient.: Yes I have reviewed all pertinent clinical information, including history, physical exam and plan: Yes Notes (Text): Patient seen, examined, case discussed with medical clerical assistant. Patient seen this morning. No acute events overnight. Patient seen with both daughters at bedside. Patient noted right cath groin site improving mild ecchymoses no swelling no tenderness on palpation distal pulses intact. Patient daughter is aware that he has follow-up with Dr. Alfaro tomorrow January 09, 2019 4 PM to schedule for further intervention of LAD. I have also spoken with Dr. Alfaro today as well to in confirmation. Patient is aware that he will need to be on medications in terms of his new heart disease as well as smoking sensation as well as further prevention of becoming an overt diabetic. I also did speak with Dr. Branham, patient's primary care doctor as well in light of the patient's recent hospitalization as a code heart for inferior wall NH noted to have 100% RCA occlusion as well as further intervention needed for LAD a I also did indicate to him that the patient may also may see a Dr. Jey Ulloa who is a relation for cardiology as well. Medications on discharge including the following: Aspirin 81 mg 1 tab p.o. daily Brilinta 90 mg p.o. twice daily 3-month prescription provided Lopressor 25 mg p.o. twice daily Lisinopril 2.5 mg once a day Crestor 10 mg at night Flomax 0.4 mg p.o. once a day Prescription provided for NicoDerm patch as well as to promote smoking cessation As well as necessary counseling to farad patient who is a in a state of what used to be called prediabetes is now known is impaired glucose tolerance from becoming on oh for diabetic. Patient is advised to follow-up with cardiology in terms of any type of work restrictions or limitations tomorrow at his appointment for outpatient. Patient is advised that he will need to make severe life diet modifications to her preserve quality of life in light of heart disease. This is a summary of patient's hospitalization please refer to EMR for full detail record thank you Discharge diagnosis (1) Acute ST elevation myocardial infarction (STEMI) Assessment & Plan: * Inferior wall NH * Patient underwent cardiac catheter with cardiology 100% RCA occlusion with a drug-eluting stent * Per cardiology stable for discharge. Follow-up outpatient with cardiology tomorrow in office at 4 PM for further intervention of other coronary lesion * Patient discharged on aspirin, beta-brayden, KAREEM inhibitor, statin, and Brilinta * Noted ecchymoses over right groin cath site which is fading and nontender distal pulses intact (2) Smoker Assessment & Plan: * [id number] smoking history * Strong counseling against smoking provided. * Advised nicotine patch daily use Status: Chronic (3) Impaired glucose tolerance Assessment & Plan: * a1c: 6.2 Status: Chronic (4) CAD (coronary artery disease) Assessment & Plan: * Cardiology (Dr. Alfaro) on case-->help appreciated * Echocardiogram * code heart * aspirin, brilinta, statin, kareem inhibitor, beta brayden * smoking cessation * stress relief methods such as yoga to promote mindfulness * Will need to follow-up with cardiology as outpatient for further intervention Status: Chronic (5) HLD (hyperlipidemia) Assessment & Plan: * crestor 10mg poqHS Status: Chronic (6) HTN (hypertension) Assessment & Plan: * Lisinopril 2.5mg PO Daily * lopressor 25mg PO bid * advised smoking prevention--->30 pack year smoking; had quit and then resumed chain smoker * advised to stop smoking, given risk factor for CAD, in addition to cancer, premature aging Status: Chronic (7) Kidney stone Assessment & Plan: * flomax 0.4mg PO daily * po hydration * heart healthy diet Status: Chronic (8) History of Lumbar Stenosis Assessment & Plan: * Advised ongoing physical therapy to help reduce back pain related to lumbar stenosis
[2019-01-08] MEDS ORDERED: Pneumococcal 23-Valent Vaccine SC ONE (12:00)
[2019-01-08] MEDS ORDERED: Influenza Vaccine 60 mcg/0.5 mL SYR (4YR UP) IM ONE (12:00)
[2019-01-08 13:15] VITALS: TEMP 98.3
[2019-01-08 13:18] VITALS: BP 107/67; PULSE 66
--- NOTE | 2019-01-10 21:45 | CATH ---
APPROVED REPORT Date of service: 01/06/2019 Procedure(s) performed: Cardiac Catheterization and Angioplsty/Stent of RCA. HISTORY The patient is a 63 year-old male with a history of : diabetes mellitus with diet treatment, tobacco history() , hypertension, dyslipidemia. INDICATION The indication(s) include : STEMI (>0 to less than or equal to 6 hours). CASE TECHNIQUE The patient was brought emergently to the Cardiac Catheterization Laboratory in a fasting state and was prepped and draped in a sterile manner. The right femoral groin was infiltrated with 2% Lidocaine subcutaneous anesthesia. A 6F sheath was inserted into the right femoral artery without difficulty. Coronary angiography was performed using coronary diagnostic catheters. The left coronary system was accessed and visualized with a Diagnostic 6 F JL4 catheter. The right coronary system was accessed and visualized with a Guided 6 F JR4 catheter. The left ventricle was accessed and visualized with a Diagnostic 6F Pig tail catheter. Left ventriculogram was performed in [place] projection. Pre-demployment femoral angiogram was performed . Closure device was deployed with a 6 Fr Angioseal without any complications. Vessel Analysis The patient's coronary anatomy is right dominant. The left main coronary artery is a medium size vessel without significant stenosis. The left main bifurcates to the left anterior descending and circumflex. The left anterior descending artery is a large size vessel . There is a 75% stenosis in the proximal segment. The circumflex artery is a medium size vessel without significant stenosis. The right coronary artery is a medium size vessel . There is a 100% stenosis in the proximal segment. Left Ventricle The left ventricle is normal in size with Abnormal contractility. The left ventricular ejection fraction is estimated to be 55%. The left ventricular end diastolic pressure is 24 mmHg. There was no gradient across the aortic valve upon pullback. PCI Technique Lesion Anticoagulation was achieved with Heparin. Percutaneous coronary intervention was performed on the proximal right coronary artery. The lesion stenosis prior to intervention was 100% with ANA PAULA 0 flow. A 6F JR 4 Guide Guide Catheter was used to engage the RCA ostium. A Whisper Interventional Guidewire was used to cross the lesion. BALLOON DILATION A Balloon catheter 2.0X12 was inserted and inflated up to 12atm for 20seconds. Repeat angiography revealed the following post-dilatation results: long proximal and mid vesssel lesion. STENT DEPLOYMENT A cutu-xowlzizqcod-lwxqqjy stent 2.75X32 was inserted and inflated up to 12atm for 30seconds. Repeat angiography revealed the following post-stent deployment results: 0% residual stenosis with TIMI3 flow. Final angiography reveals 0 % stenosis with ANA PAULA 3 flow. Conclusion Multi-vessel disease. Successful PTCA/Stent of RCA. Normal EF with mild infero-basal hypokinesis. Recommendations Smoking Cessation Daily ASA with Plavix for at least one year Cardiac Risk Reduction Program
== END 2019-01-08 13:10 | disposition home or self-care (01) | DRG 247 ==
LOC: C.ER 23:54 → C.9I 01-06 00:39
PROVIDERS: ADMIT Hospitalist; ATTEND Hospitalist
PROC: 027034Z Dilation of Coronary Artery, One Artery with Drug-eluting Intraluminal Device, Percutaneous Approach (ICD-10-PCS; principal; 2019-01-06)
PROC: 4A023N8 Measurement of Cardiac Sampling and Pressure, Bilateral, Percutaneous Approach (ICD-10-PCS; 2019-01-06)
PROC: B2161ZZ Fluoroscopy of Right and Left Heart using Low Osmolar Contrast (ICD-10-PCS; 2019-01-06)
PROC: B2111ZZ Fluoroscopy of Multiple Coronary Arteries using Low Osmolar Contrast (ICD-10-PCS; 2019-01-06)
DX: I21.19 ST elevation (STEMI) myocardial infarction involving other coronary artery of inferior wall (principal); I25.10 Atherosclerotic heart disease of native coronary artery without angina pectoris; I10 Essential (primary) hypertension; E87.6 Hypokalemia; E78.5 Hyperlipidemia, unspecified; R73.02 Impaired glucose tolerance (oral); R73.03 Prediabetes; M48.061 Spinal stenosis, lumbar region without neurogenic claudication; N20.0 Calculus of kidney; F17.210 Nicotine dependence, cigarettes, uncomplicated; Z79.899 Other long term (current) drug therapy; Z87.442 Personal history of urinary calculi